=== PATIENT | male | born 1995 | race Caucasian/White ===

== ENCOUNTER 2019-12-28 14:52 | Emergency (ER) | payer MEDICAID ==
[~2019-12-28] VITALS: Ht 172.7 cm; Wt 108.1 kg
[~2019-12-28 14:52] MED LIST: ALBUTEROL
[2019-12-28 15:16] VITALS: BP 117/78
== END 2019-12-28 17:27 | disposition left against medical advice (07) ==
LOC: ER 14:52
DX: Z53.21 Procedure and treatment not carried out due to patient leaving prior to being seen by health care provider (principal); J45.909 Unspecified asthma, uncomplicated